=== PATIENT | female | born 1995 | race Caucasian/White ===

== ENCOUNTER 2018-05-23 13:25 | Emergency (ER) | payer OTHER, MEDICAID ==
[~2018-05-23] VITALS: Ht 167.6 cm; Wt 61.2 kg
[~2018-05-23 13:25] MED LIST: IBUPROFEN 800800 M1; IBUPROFEN 800800 MG PO; PERCOCET 5-3251 EACH
[2018-05-23 14:06] LABS: URINE BILIRUBIN NEGATIVE (Negative); URINE BLOOD NEGATIVE (Negative); URINE CLARITY CLEAR; URINE COLOR YELLOW; URINE GLUCOSE-RANDOM NEGATIVE (Negative); URINE KETONES NEGATIVE (Negative); URINE NITRITE-REFLEX NEGATIVE (Negative); URINE PROTEIN NEGATIVE (Negative); URINE SPECIFIC GRAVITY 1.015 (1.005-1.030); URINE UROBILINOGEN 0.2 E.U./dl (0.2-1.0)
[2018-05-23 14:11] LABS: ABSOLUTE LYMPHOCYTES 2.4 thou/uL (0.8-5.3); ABSOLUTE MONOCYTES 0.5 thou/uL (0.0-1.2); ABSOLUTE NEUTROPHILS 3.6 thou/uL (1.6-8.1); BASOPHILS 0.5 %; EOSINOPHILS 0.6 %; HEMATOCRIT 36.3 % (37.0-47.0); HEMOGLOBIN 11.9 gm/dL (12.0-15.0); LYMPHOCYTES 36.5 %; MCH 28.8 pg (26.0-34.0); MCHC 32.7 g/dL (28.0-37.0); MCV 88.2 fL (80.0-100.0); MPV 7.1 fl. (7.2-11.1); NUCLEATED RBCS 0 /100WBC; PLATELET COUNT* 306 thou/uL (150-400); POLYS 54.4 %; RBC 4.12 mil/uL (4.20-5.00); RDW-CV 12.9 % (10.5-14.5); WBC 6.6 thou/uL (4.0-11.0)
[2018-05-23 14:16] LABS: URINE LEUKOCYTES-REFLEX 2+ (Negative)
[2018-05-23 14:18] LABS: BACTERIA-REFLEX 1-9 Few /HPF (None Seen); CASTS None Seen /LPF (None Seen); CRYSTALS None Seen /LPF (None Seen); SQUAMOUS 4-10 Moderate /LPF (0-3); URINE RBC 0-2 Rare /HPF (0-2); URINE WBC-REFLEX 0-5 Rare /HPF (0-5)
[2018-05-23 14:20] LABS: CALCIUM 9.7 mg/dL (8.5-10.1); CREATININE 0.7 mg/dL (0.6-1.3); POTASSIUM 3.6 mmol/L (3.5-5.1)
[2018-05-23 14:30] LABS: TOTAL BILIRUBIN 0.2 mg/dL (<0.1-1.0); TOTAL PROTEIN 7.5 g/dL (6.4-8.2)
[2018-05-23] MEDS ORDERED: TRINATE TABLET1 EACH PO (14:55)
[2018-05-23] MEDS ORDERED: KEFLEX500 M1 PO (14:56)
[2018-05-23] MEDS ORDERED: ONDANSETRON HCL4 M2 PO (15:27)
[2018-05-23 16:36] VITALS: BP 105/51
== END 2018-05-23 16:38 | disposition home or self-care (01) ==
LOC: M.ERS 13:25
PROVIDERS: Nurse Practitioner Family
DX: O21.0 Mild hyperemesis gravidarum (principal); Z3A.01 Less than 8 weeks gestation of pregnancy; O23.41 Unspecified infection of urinary tract in pregnancy, first trimester; O98.311 Other infections with a predominantly sexual mode of transmission complicating pregnancy, first trimester; Z88.5 Allergy status to narcotic agent

== ENCOUNTER 2018-05-31 06:57 | Emergency (ER) | payer MEDICAID ==
[~2018-05-31] VITALS: Ht 167.6 cm; Wt 62.1 kg
[~2018-05-31 06:57] MED LIST changes: +KEFLEX500 M1 PO; +ONDANSETRON HCL4 M2 PO; +TRINATE TABLET1 EACH PO
[2018-05-31 08:26] LABS: HEMATOCRIT 35.6 % (37.0-47.0); MCH 29.7 pg (26.0-34.0); MCHC 33.7 g/dL (28.0-37.0); MPV 6.9 fl. (7.2-11.1); NUCLEATED RBCS 0 /100WBC; PLATELET COUNT* 258 thou/uL (150-400); RBC 4.05 mil/uL (4.20-5.00); RDW-CV 13.3 % (10.5-14.5); WBC 8.9 thou/uL (4.0-11.0)
[2018-05-31 08:31] LABS: CREATININE 0.7 mg/dL (0.6-1.3)
[2018-05-31 08:36] LABS: URINE BILIRUBIN NEGATIVE (Negative); URINE BLOOD NEGATIVE (Negative); URINE CLARITY CLEAR; URINE COLOR YELLOW; URINE GLUCOSE-RANDOM NEGATIVE (Negative); URINE KETONES NEGATIVE (Negative); URINE LEUKOCYTES-REFLEX NEGATIVE (Negative); URINE NITRITE-REFLEX NEGATIVE (Negative); URINE PROTEIN NEGATIVE (Negative); URINE SPECIFIC GRAVITY >= 1.030 (1.005-1.030); URINE UROBILINOGEN 0.2 E.U./dl (0.2-1.0)
[2018-05-31 08:36] LABS: ALBUMIN 3.8 g/dL (3.4-5.0); TOTAL BILIRUBIN 0.2 mg/dL (<0.1-1.0); TOTAL PROTEIN 7.4 g/dL (6.4-8.2)
[2018-05-31 09:15] LABS: ABSOLUTE LYMPHOCYTES 0.9 thou/uL (0.8-5.3); ABSOLUTE MONOCYTES 0.4 thou/uL (0.0-1.2); ABSOLUTE NEUTROPHILS 7.7 thou/uL (1.6-8.1)
[2018-05-31 09:16] LABS: PLATELET ESTIMATE ADEQUATE
[2018-05-31 10:42] VITALS: BP 88/42
== END 2018-05-31 10:43 | disposition home or self-care (01) ==
LOC: M.ERS 06:57
PROVIDERS: Personal Emergency Response Attendant
DX: O21.1 Hyperemesis gravidarum with metabolic disturbance (principal); O99.341 Other mental disorders complicating pregnancy, first trimester; Z88.5 Allergy status to narcotic agent; Z3A.01 Less than 8 weeks gestation of pregnancy

== ENCOUNTER 2019-01-04 16:58 | Emergency (ER) | payer OTHER, MEDICAID ==
[~2019-01-04] VITALS: Ht 167.6 cm; Wt 79.4 kg
[2019-01-04] MEDS ORDERED: ZOLOFT25 MG PO (17:12)
[2019-01-04] MEDS ORDERED: VALTREX 500 MG500 MG PO (17:13)
[2019-01-04] MEDS ORDERED: CLEOCIN HCL300 MG PO (18:46)
[2019-01-04] MEDS ORDERED: ONDANSETRON HCL4 M2 PO (18:47)
[2019-01-04 18:52] VITALS: BP 119/62
== END 2019-01-04 18:52 | disposition home or self-care (01) ==
LOC: M.ERS 16:58
DX: O9A.213 Injury, poisoning and certain other consequences of external causes complicating pregnancy, third trimester (principal); S61.052A Open bite of left thumb without damage to nail, initial encounter; Z3A.39 39 weeks gestation of pregnancy; W55.01XA Bitten by cat, initial encounter; Y93.89 Activity, other specified; Y92.89 Other specified places as the place of occurrence of the external cause; Y99.8 Other external cause status; L03.012 Cellulitis of left finger

== ENCOUNTER 2019-05-21 18:22 | Emergency (ER) | payer OTHER, MEDICAID ==
[~2019-05-21] VITALS: Ht 167.6 cm; Wt 67.1 kg
[~2019-05-21 18:22] MED LIST changes: +CLEOCIN HCL300 MG PO; +VALTREX 500 MG500 MG PO; +ZOLOFT25 MG PO
[2019-05-21] MEDS ORDERED: CYMBALTA60 MG PO (18:43)
[2019-05-21 19:04] LABS: URINE BILIRUBIN 1+ (Negative); URINE BLOOD NEGATIVE (Negative); URINE CLARITY CLEAR; URINE COLOR ORANGE; URINE GLUCOSE-RANDOM NEGATIVE (Negative); URINE KETONES NEGATIVE (Negative); URINE LEUKOCYTES-REFLEX NEGATIVE (Negative); URINE NITRITE-REFLEX POSITIVE (Negative); URINE PROTEIN TRACE (Negative); URINE SPECIFIC GRAVITY 1.025 (1.005-1.030); URINE UROBILINOGEN 0.2 E.U./dl (0.2-1.0)
[2019-05-21 19:06] LABS: ICTOTEST (BILI CONFIRMATORY) Negative (Negative)
[2019-05-21 19:09] LABS: SQUAMOUS 4-10 Moderate /LPF (0-3); URINE RBC 0-2 Rare /HPF (0-2); URINE WBC-REFLEX 0-5 Rare /HPF (0-5)
[2019-05-21 19:10] LABS: BACTERIA-REFLEX >30 Many /HPF (None Seen); CASTS None Seen /LPF (None Seen); CRYSTALS None Seen /LPF (None Seen); MUCUS >6 Heavy strn/LPF (None Seen)
[2019-05-21 19:29] LABS: ABSOLUTE EOSINOPHILS 0.1 thou/uL (0.0-0.7); ABSOLUTE MONOCYTES 0.3 thou/uL (0.0-1.2); BASOPHILS 0.4 %; EOSINOPHILS 1.4 %; HEMOGLOBIN 13.4 gm/dL (12.0-15.0); LYMPHOCYTES 22.6 %; MCH 29.8 pg (26.0-34.0); MCHC 34.4 g/dL (28.0-37.0); MCV 86.5 fL (80.0-100.0); MONOCYTES 6.4 %; MPV 6.9 fl. (7.2-11.1); NUCLEATED RBCS 0 /100WBC; PLATELET COUNT* 250 thou/uL (150-400); POLYS 69.2 %; RBC 4.51 mil/uL (4.20-5.00); RDW-CV 13.4 % (10.5-14.5); WBC 4.4 thou/uL (4.0-11.0)
[2019-05-21 19:36] LABS: CALCIUM 8.7 mg/dL (8.5-10.1); CREATININE 0.9 mg/dL (0.6-1.3); POTASSIUM 4.2 mmol/L (3.5-5.1)
[2019-05-21 19:40] LABS: ALBUMIN 4.2 g/dL (3.4-5.0); TOTAL BILIRUBIN 0.5 mg/dL (<0.1-1.0)
[2019-05-21] MEDS ORDERED: LOPERAMIDE 2 MG2 M1 PO (20:23)
[2019-05-21] MEDS ORDERED: ONDANSETRON HCL4 M3 PO (20:23)
[2019-05-21] MEDS ORDERED: BACTRIM DS TAB1 EAC1 PO (20:23)
[2019-05-21 20:47] VITALS: BP 124/80
== END 2019-05-21 20:50 | disposition home or self-care (01) ==
LOC: M.ERS 18:22
PROVIDERS: Physician Assistant
DX: N39.0 Urinary tract infection, site not specified (principal); E86.0 Dehydration; R11.2 Nausea with vomiting, unspecified; R19.7 Diarrhea, unspecified; Z90.89 Acquired absence of other organs; F32.9 Major depressive disorder, single episode, unspecified; Z88.5 Allergy status to narcotic agent